=== PATIENT | male | born 2000 | race Caucasian/White ===

== ENCOUNTER 2021-03-12 21:53 | Emergency (ER) | payer BC ==
[~2021-03-12] VITALS: Ht 185.4 cm; Wt 80.7 kg
--- NOTE | 2021-03-12 22:40 | NUR ---
Patient ambulated with steady gait. A/Ox4. Patient came for c/o right shoulder pain. According to patient, he was wrestling/play fighting with his friend yesterday when he started experiencing the pain around 1800. Patient has limited range of motion is unable to life affected arm completely. Patient has good pulses, denies any paresthesia, good perfusion cap refill <3 seconds.
--- NOTE | 2021-03-12 22:51 | NUR ---
ERMD at bedside for eval.
[2021-03-12] MEDS ORDERED: KETOROLAC TROMETHAMINE 60 MG INJ IM ONE (23:09)
[2021-03-12] MEDS: KETOROLAC TROMETHAMINE 60 MG INJ IM ONE (23:10)
--- NOTE | 2021-03-13 00:30 | NUR ---
Patient discharged to home in stable condition. Written and verbal after care instructions given. Patient verbalizes understanding of instructions. Stressed follow up or return to ER for worsening s/s. Patient ambulated with steady gait.
[2021-03-13] MEDS ORDERED: NAPR-1164 PO (00:32)
[2021-03-13] MEDS ORDERED: CYCL10TA9 PO (00:32)
[2021-03-13 00:37] VITALS: BP 131/55
== END 2021-03-13 00:38 | disposition home or self-care (01) ==
LOC: ER 21:57
DX: T14.8XXA Other injury of unspecified body region, initial encounter (principal); W03.XXXA Other fall on same level due to collision with another person, initial encounter; Y93.83 Activity, rough housing and horseplay; Y92.89 Other specified places as the place of occurrence of the external cause; Y99.8 Other external cause status
CPT/HCPCS: 73030; 96372; 99283; J1885; A4663